=== PATIENT | male | born 1995 | race African-American/Black ===

== ENCOUNTER 2017-01-12 17:13 | Emergency (ER) | payer MEDICAID ==
--- NOTE | 2017-01-12 17:44 | ED Physician Chart ---
ED Chief Complaint/HPI - Patient Information Date Seen:: 01/12/17 Time Seen:: 17:20 Chief Complaint:: Sore Throat History of Present Illness:: onset x one week of S/T with fever, cough, and congestion x 2 days; no H/As, Neck Pain, C/P, SOB, Abd. Pain, A/N/V/D/C, chills, or urinary s/s Allergies:: Allergies Allergy/AdvReac Type Severity Reaction Status Date / Time No Known Allergies Allergy Verified 01/12/17 17:21 Vitals:: Vital Signs - 8 hr 01/12/17 17:21 Temp 98.8 F HR 75 RR 16 BP 133/71 O2 Sat % 98 Historian:: Patient Review:: Nurse's Note Reviewed ED Review of Systems - Review of Systems General/Constitutional: Fever, Chills, No weight loss, No weakness, No diaphoresis, No edema, No loss of appetite Skin: No skin lesions, No rash, No bruising Head: No headache, No light-headedness Eyes: No loss of vision, No pain, No diplopia ENT: No earache, Nasal drainage, Sore throat, No tinnitus Neck: No neck pain, No swelling, No thyromegaly, No stiffness, No mass noted Cardio Vascular: No chest pain, No palpitations, No PND, No orthopnea, No edema Pulmonary: No SOB, Cough, No sputum, No wheezing GI: No nausea, No vomiting, No diarrhea, No pain, No melena, No hematochezia, No constipation, No hematemesis G/U: No dysuria, No frequency, No hematuria Musculoskeletal: No bone or joint pain, No back pain, No muscle pain Endocrine: No polyuria, No polydipsia Psychiatric: No prior psych history, No depression, No anxiety, No suicidal ideation Hematopoietic: No bruising, No lymphadenopathy Allergic/Immuno: No urticaria, No angioedema Neurological: No syncope, No focal symptoms, No weakness, No paresthesia, No headache, No seizure, No dizziness, No confusion, No vertigo ED Past Medical History - Past Medical History Obtainable: Yes Past Medical History: No significant medical hx Family History: HTN Social History: Non Smoker, No Alcohol, Single Surgical History: None Psychiatricy History: None Medication: Reviewed Family Medical History - Family Member Mother History Unknown: Yes ED Physical Exam - Physical Examination General/Constitutional: Awake, Well-developed, well-nourished, Alert, No distress, GCS 15, Non-toxic appearing, Ambulatory Head: Atraumatic Eyes: Lids, conjuctiva normal, PERRL, EOMI Skin: Nl inspection, No rash, No skin lesions, No ecchymosis, Well hydrated, No lymphadenopathy ENMT: External ears, nose nl, Nasal exam nl, Lips, teeth, gums nl, Tonsils nl Other ENMT comments:: Pharynx: injected; no exudates or abscesses; no FBs; no obstruction Neck: Nontender, Full ROM w/o pain, No JVD, No nuchal rigidity, No bruit, No mass, No stridor Respiratory: Nl effort/Exclusion, Clear to Auscultation, No Wheeze/Rhonchi/Rales Cardio Vascular: RRR, No murmur, gallop, rubs, NL S1 S2 GI: No tenderness/rebounding/guarding, No organomegaly, No hernia, Normal BS's, Nondistended, No mass/bruits, No McBurney tenderness : No CVA tenderness Extremities: No tenderness or effusion, Full ROM, normal strength in all extremities, No edema, Normal digits & nails Neuro/Psych: Alert/oriented, DTR's symmetric, Normal sensory exam, Normal motor strength, Judgement/insight normal, Mood normal, Normal gait, No focal deficits Misc: normal gait, Normal back, No paraspinal tenderness ED Septic Shock - . Is Septic Shock (SBP<90, OR Lactate>4 mmol\L) present?: No - <6hrs of presentation: Vital Signs: Vital Signs - 8 hr / 17:21 Temp 98.8 F HR 75 RR 16 BP 133/71 O2 Sat % 98 ED Reassessment (Disposition) - Reassessment Reassessment:: pt is comfortable upon discharge Reassessment Condition:: Improved - Diagnosis Diagnosis:: Dx: Pharyngitis; Fever; Cough; Congestion; Bronchitis; Sinusitis; URI - Aftercare/Follow up Instructions Aftercare/Follow-Up Instructions:: Counseled pt regarding lab results/diagnosis & need follow up, Refer to Discharge Instructions, Counseled pt & family regarding lab results/diagnosis & need follow up Medication Prescribed:: Rx: Amoxicillin 500mg po tid x 10 days; Roburtussin DM/Tylenol/Cool Mist Vapoizer: take as prescribed/directed - Patient Disposition Discharge/Transfer:: Home Condition at Disposition:: Stable, Improved (RTER prn if existing s/s reoccur and/or get worse and/or any other new s/s occur; ACIs given for all above Dx; Refer to ENT Specialist/[facility] YOLANDA; F/U with PMD in one day or prn; RTER prn if concerned) ED Discharge Plan - Patient Disposition Prescriptions: Amoxicillin 500 mg PO TID #30 ctb Instructions: Viral and Bacterial Pharyngitis Accepting Physician: Cam Flower [Other] - 1-3 Days
== END 2017-01-12 17:40 | disposition home or self-care (01) ==
LOC: ER 17:13
DX: J02.9 Acute pharyngitis, unspecified (principal); R50.9 Fever, unspecified; J40 Bronchitis, not specified as acute or chronic; N39.0 Urinary tract infection, site not specified
CPT/HCPCS: Z7502

== ENCOUNTER 2018-01-10 22:16 | Emergency (ER) | payer MEDICAID ==
--- NOTE | 2018-01-10 22:26 | ED Physician Chart ---
ED Chief Complaint/HPI - Patient Information Date Seen:: 01/10/18 Time Seen:: 22:25 Chief Complaint:: Left ankle pain History of Present Illness:: 22 yo male stated that he jumped from a height of about 5 feet 2 hours ago. He landed on his feet and he was able to walk. About 30 minutes later, he had significant pain in the left foot and left ankle. Allergies:: Allergies Allergy/AdvReac Type Severity Reaction Status Date / Time No Known Allergies Allergy Verified 01/12/17 17:21 ED Review of Systems - Review of Systems General/Constitutional: No fever Skin: No skin lesions Head: No headache Eyes: No pain ENT: No nasal drainage Neck: No neck pain Cardio Vascular: No chest pain Pulmonary: No SOB, No cough GI: No nausea, No vomiting Musculoskeletal: Bone or joint pain Psychiatric: No prior psych history Neurological: No focal symptoms ED Past Medical History - Past Medical History Past Medical History: No significant medical hx Social History: Smoker, Alcohol, Illicit Drug Use (marijuana) Surgical History: None Family Medical History - Family Member Mother History Unknown: Yes ED Physical Exam - Physical Examination General/Constitutional: Awake, Alert Head: Atraumatic Eyes: PERRL Skin: No skin lesions ENMT: Nasal exam nl Neck: No nuchal rigidity Respiratory: Clear to Auscultation Cardio Vascular: RRR, No murmur, gallop, rubs, NL S1 S2 GI: No tenderness/rebounding/guarding Other Extremities comments:: Lateral left foot and ankle tenderness with painful ROM. No swelling Neuro/Psych: No focal deficits ED Labs/Radiology/EKG Results - Radiology Results Results: Left ankle X ray and left foot X ray: no bone fracture ED Assessment - Assessment General Assessment: Left foot pain and contusion Assessment/Comments:: Left ankle and left foot x ray Toradol 60mg IM Wrapped left ankle ED Septic Shock - . Is Septic Shock (SBP<90, OR Lactate>4 mmol\L) present?: No ED Reassessment (Disposition) - Reassessment Reassessment:: Patient request pain medication for home use. However, patient refused urine drug test. No prescription was given. Reassessment Condition:: Improved - Patient Disposition Discharge/Transfer:: Home
--- NOTE | 2018-01-11 10:43 | Diagnostic Imaging Report ---
Left foot (3 views) HISTORY: Pain, trauma No acute bony abnormalities. No fractures. Joint spaces appear normal. IMPRESSION: No acute abnormalities. In the presence of recent trauma and persistent symptoms, a repeat radiograph in 5-7 days may be helpful for detection of a subtle or occult fracture.
--- NOTE | 2018-01-11 10:43 | Diagnostic Imaging Report ---
Left ankle (3 views) HISTORY: Pain, trauma No acute bony abnormalities. No fractures. Joint spaces appear normal. IMPRESSION: 1. No acute abnormalities In the presence of recent trauma and persistent symptoms, a repeat radiograph in 5-7 days may be helpful for detection of a subtle or occult fracture.
== END 2018-01-11 00:45 | disposition home or self-care (01) ==
LOC: ER 22:16
DX: S90.32XA Contusion of left foot, initial encounter (principal); F17.200 Nicotine dependence, unspecified, uncomplicated; X58.XXXA Exposure to other specified factors, initial encounter; Y93.39 Activity, other involving climbing, rappelling and jumping off; Y92.89 Other specified places as the place of occurrence of the external cause; Y99.8 Other external cause status
CPT/HCPCS: 73610-TC; 73630-TC-LT; J1885; Z7502